=== PATIENT | male | born 1935 | race Caucasian/White ===

== ENCOUNTER 2016-10-05 16:11 | Emergency (ER) | payer MEDICARE, OTHER ==
--- NOTE | ~2016-10-05 | ER ---
PATIENT'S NAME: ROCIO KEY [facility] AGE: 81 Y [address] ROOM: [place] [address] LOCATION: [facility] ADMIT DATE: 10/05/2016 ER/Outpatient Report DISCHARGE DATE: 10/05/2016 FAMILY PHYSICIAN: Physician, Unknown ATTENDING PHYSICIAN: Virginia Nur Time of Arrival: 1611 hours. Time of Exam: 1611 hours. CHIEF COMPLAINT: Right shoulder injury. HISTORY OF PRESENT ILLNESS: The patient arrived per EMS with IV in place of the left hand. The patient reports just prior to arrival he was on a horse trail ride when his horse started acting up. He was able to get the horse over into some taller grass, horse bucked him off, and he ended up landing square on his right shoulder. Denies any other injury. Did not hit his head. Did not have any loss of consciousness. States as long as he keeps his arm immobilized, his right shoulder does not hurt too bad. He does have it in a sling at this time. Denies any numbness or tingling of his fingers. Patient states he did injure this shoulder in April when he slipped on ice. ALLERGIES: TRAMADOL. CURRENT MEDICATIONS: On his chart and reviewed by me. PAST MEDICAL HISTORY: Hypertension, hyperlipidemia, chronic pain. PAST SURGERIES: Benign. SOCIAL HISTORY: The patient lives in [place], [place]. Is here at the [facility] for the 150th celebration and horse trail ride. He does do trail rides on a regular basis. Denies use of tobacco or other drugs. Does drink at least one alcoholic drink on a nightly basis. REVIEW OF SYSTEMS: All negative other than those mentioned in the HPI. PHYSICAL EXAMINATION: VITAL SIGNS: He weighed 104.5 kilograms, blood pressure is 137/83, pulse is PATIENT'S NAME: ROCIO KEY [facility] AGE: 81 Y [address] ROOM: [place] [address] LOCATION: [facility] ADMIT DATE: 10/05/2016 ER/Outpatient Report DISCHARGE DATE: 10/05/2016 FAMILY PHYSICIAN: Physician, Unknown ATTENDING PHYSICIAN: Virginia Nur 63, respirations 16, and O2 saturation was 97% on room air. GENERAL: He is awake, alert, and oriented x4. SKIN: [place], warm, and dry. RESPIRATIONS: Even and nonlabored. Pupils are equal and reactive to light. Extraocular movement is intact. LUNGS: Lung sounds are clear throughout. HEART: Regular rate and rhythm. ABDOMEN: Soft, nondistended. Bowel sounds are present. MUSCULOSKELETAL: He was able to stand from the cot and then pivot onto the cart. Did not have any pain or discomfort of his legs. He does have pain in the right shoulder area. He has strong radial and ulnar pulses. He is able to wiggle his fingers without any discomfort, make a strong fist. LABORATORY DATA AND X-RAYS: X-ray was completed, reviewed with Dr. Nur. Questionable fracture of the acromion. CT scan was completed. Radiologist confirms that the patient has a right acromion fracture with dislocation of the AC joint. IMPRESSION: Fractured right acromion, AC joint dislocation. PLAN: The patient was placed in an arm sling. To rest, ice to the shoulder. I did call and talk to Dr. Munoz about the patient to make sure if it was okay for him to follow up with his primary provider in [place], if that would be okay for him to wait. Dr. Munoz did agree that that would be fine. He encouraged the patient to follow up with Dr. Andrzej Pompa at [facility], that information was given to the patient. The patient verbalized understanding. He had friends here with him, who will drive him back to his camp site, and then family will meet him to help him get home. YAKOV HODGE APRN FOR MD TERESA DINH/sedrick /[id number] d: 10/06/16 0035 t: 10/12/16 2019, OUTPATIENT REPORT
== END 2016-10-05 17:17 | disposition disaster alternative care site (69) ==
LOC: GACC 16:11
DX: S42.121A Displaced fracture of acromial process, right shoulder, initial encounter for closed fracture (principal); I10 Essential (primary) hypertension; E78.5 Hyperlipidemia, unspecified; Z88.5 Allergy status to narcotic agent; Z88.8 Allergy status to other drugs, medicaments and biological substances; Z79.899 Other long term (current) drug therapy; Z79.82 Long term (current) use of aspirin; V80.010A Animal-rider injured by fall from or being thrown from horse in noncollision accident, initial encounter; Y93.52 Activity, horseback riding; Y92.830 Public park as the place of occurrence of the external cause

== ENCOUNTER → 2016-10-05 | Outpatient (CLI) | payer MEDICARE, OTHER | END | disposition disaster alternative care site (69) | LOC: GAMB 15:37 | DX: S49.91XA Unspecified injury of right shoulder and upper arm, initial encounter (principal); M25.559 Pain in unspecified hip; G89.29 Other chronic pain; I10 Essential (primary) hypertension; Z79.891 Long term (current) use of opiate analgesic; V80.010A Animal-rider injured by fall from or being thrown from horse in noncollision accident, initial encounter | CPT/HCPCS: A0425; A0429 ==